=== PATIENT | female | born 1975 | race Caucasian/White ===

== ENCOUNTER 2016-04-12 19:10 | Emergency (ER) | payer OTHER ==
[2016-04-12] MEDS ORDERED: NS 0.9% 1000 ML* 2,000 ML IV ONE (20:00)
[2016-04-12] MEDS ORDERED: Metoclopramide IV* 5 MG/ML 2 ML VIAL IV SLOW PU ONE (20:01)
--- NOTE | 2016-04-12 20:40 | ED ---
Abdominal Pain/Female - HPI Summary HPI Summary: Patient is 7 weeks and presents with nausea and vomiting x2 days. She states she was diagnosed with hyperemesis with her previous and eventually needed fluid replacement and nausea medications. She states this is similar. Denies GAO, abdominal pain, dizziness, vaginal discharge or bleeding or urinary symptoms. She called her OB today, but since the OB has yet to see her for this , OB was unable to prescribe any anti-nausea medications. Today she asks for fluid repletion and anti-nausea medications. Otherwise healthy and takes no medications. Previous pregnancies without compromise other than hyperemesis symptoms. - History of Current Complaint Chief Complaint: EDGennyuseCesar Stated Complaint: VOMITING-7WKS PREG Time Seen by Provider: 04/12/16 19:44 Hx Obtained From: Patient Hx Last Menstrual Period: 10/11/14 ?: Yes Onset/Duration: Gradual Onset Timing: Minutes Severity Initially: Moderate Severity Currently: Moderate Pain Intensity: 1 Pain Scale Used: 0-10 Numeric Radiates: No Aggravating Factor(s): Food Alleviating Factor(s): Medications Associated Signs and Symptoms: Positive: Nausea, Vomiting Simlar Episode/Dx as:: previous hyperemesis gravidarum with - Risk Factors Ectopic Risk Factor: Maternal Age ^ 30 Ovarian Torsion Risk Factor: Reproductive Age Allergies/Adverse Reactions: Allergies Allergy/AdvReac Type Severity Reaction Status Date / Time No Known Allergies Allergy Verified 10/22/14 10:14 PMH/Surg Hx/FS Hx/Imm Hx Previously Healthy: Yes Infectious Disease History: No Infectious Disease History: Denies: History Other Infectious Disease, Traveled Outside the [place] in Last 30 Days - Social History Occupation: Employed Full-time Lives: With Family Alcohol Use: Occasionally Hx Substance Use: No Substance Use Type: Reports: None Hx Tobacco Use: No Smoking Status (MU): Never Smoked Tobacco Do You Chew or Dip Tobacco: No Have You Chewed or Dipped Tobacco in the LAST YEAR: No Have You Smoked in the Last Year: No Review of Systems Constitutional: Negative Cardiovascular: Negative Respiratory: Negative Positive: Vomiting, Nausea Genitourinary: Negative Positive: no symptoms reported, see HPI, other - denies vaginal discharge Musculoskeletal: Negative Skin: Negative Neurological: Negative Psychological: Normal All Other Systems Reviewed And Are Negative: Yes Physical Exam Triage Information Reviewed: Yes Vital Signs On Initial Exam: Initial Vitals Temp Pulse Resp BP Pulse Ox 98.3 F 87 16 101/67 100 04/12/16 19:37 04/12/16 19:37 04/12/16 19:37 04/12/16 19:37 04/12/16 19:37 Vital Signs Reviewed: Yes Appearance: Positive: Well-Appearing, No Pain Distress, Well-Nourished Skin: Positive: Warm, Skin Color Reflects Adequate Perfusion Head/Face: Positive: Normal Head/Face Inspection, Temporal Artery Tenderness Eyes: Positive: Normal, EOMI, KIMMY Neck: Positive: Supple, Nontender Respiratory/Lung Sounds: Positive: Breath Sounds Present Cardiovascular: Positive: Normal, Pulses are Symmetrical in both Upper and Lower Extremities Abdomen Description: Positive: Soft Musculoskeletal: Positive: Normal, Strength/ROM Intact Neurological: Positive: Sensory/Motor Intact, Alert, Oriented to Person Place, Time, CN Intact II-III, Speech Normal Psychiatric: Positive: Normal, Affect/Mood Appropriate AVPU Assessment: Verbal (Reponds To) - Adams Coma Scale Best Eye Response: 4 - Spontaneous Best Motor Response: 6 - Obeys Commands Best Verbal Response: 5 - Oriented Diagnostics - Vital Signs Vital Signs Temp Pulse Resp BP Pulse Ox 04/12/16 19:37 98.3 F 87 16 101/67 100 - Laboratory Result Diagrams: 04/12/16 21:05 04/12/16 21:45 Lab Statement: Any lab studies that have been ordered have been reviewed, and results considered in the medical decision making process. Abdominal Pain Fem Course/Dx - Course Course Of Treatment: Patient arrives with N/V with 7 weeks . No current OB for this but has appt soon. She has had 2 previous pregnancies with hyperemesis gravidarum with both. Today, she states this feels similar to her other pregnancies. She called her OB, but they were unable to prescribe medications without evaluating her first. Discharged with zofran rx and dispense to home zofran. Will follow up with PCP. - Diagnoses Differential Diagnosis: Positive: Ectopic , , Other - N/V, hyperemesis gravidarum Provider Diagnoses: Hyperemesis gravidarum Discharge - Discharge Plan Condition: Stable Disposition: HOME Patient Education Materials: Hyperemesis Gravidarum (ED) Referrals: Non Staff,Doctor [Primary Care Provider] - Additional Instructions: Follow up with OBGYN. If you develop any urinary symptoms, come back to ED or see your PCP or OBGYN. Take zofran as prescribed to you. Do not drive or operate machinery until you know how this medication affects you. Drink plenty of fluids. Supplement with cranberry juice. Eat slow small meals throughout the day and begin each day with crackers before rising. This may help with nausea in the AM.
[2016-04-12 21:13] LABS: Hematocrit 36 % (35-47); Hemoglobin 11.8 g/dl (12.0-16.0); Mean Corpuscular HGB Conc 33 g/dl (31-36); Mean Corpuscular Hemoglobin 27 pg (27-31); Mean Corpuscular Volume 81 fL (80-97); Red Blood Count 4.45 10^6/ul (4.0-5.4); Red Cell Distribution Width 17 % (10.5-15)
[2016-04-12 21:14] LABS: Add Diff/Slide Review? Slide Review Added; Comments Flag Yes
[2016-04-12 21:30] LABS: Budding Yeast Present (Absent); Urine Bacteria Absent (Absent); Urine Bilirubin Negative (Negative); Urine Glucose Negative (Negative); Urine Nitrite Negative (Negative)
[2016-04-12 21:30] LABS: ALT 13 U/L (7-52); Albumin 4.2 g/dL (3.2-5.2); Alkaline Phosphatase 48 U/L (34-104); BUN/Creatinine Ratio 16.2 (8-20); Blood Urea Nitrogen 11 mg/dL (6-24); CO2 Carbon Dioxide 23 mmol/L (22-32); Calcium 9.7 mg/dL (8.6-10.3); Chloride 101 mmol/L (101-111); EGFR African American 124.5 (>60); EGFR Non-African American 96.8 (>60); Globulin 3.4 g/dL (2-4); Glucose 91 mg/dL (70-100); Sodium 130 mmol/L (133-145); Total Protein 7.6 g/dL (6.4-8.9)
[2016-04-12 21:41] LABS: Mean Platelet Volume 9 um3 (7.4-10.4)
[2016-04-12] MEDS ORDERED: Ondansetron ODT TAB* 4 MG PO ONE (22:00)
[2016-04-12 22:32] VITALS: BP 103/61
== END 2016-04-12 22:30 | disposition home or self-care (01) ==
LOC: ED 19:10
DX: O21.0 Mild hyperemesis gravidarum (principal); Z3A.01 Less than 8 weeks gestation of pregnancy
CPT/HCPCS: 36415; 80053; 81003; 81015; 85025; 87086; 96360; 96374; 99283; A9270-GY; J2765

== ENCOUNTER 2016-07-06 08:07 | Emergency (ER) | payer OTHER ==
[2016-07-06 09:05] LABS: PCO2 Arterial 17 mmHg (35-45)
[2016-07-06 09:07] LABS: Hematocrit 34 % (35-47); Hemoglobin 11.1 g/dl (12.0-16.0); Mean Corpuscular HGB Conc 33 g/dl (31-36); Mean Corpuscular Hemoglobin 29 pg (27-31); Mean Corpuscular Volume 86 fL (80-97); Mean Platelet Volume 8 um3 (7.4-10.4); Red Cell Distribution Width 16 % (10.5-15); White Blood Count 11.8 10^3/ul (3.5-10.8)
[2016-07-06] MEDS ORDERED: NS 0.9% 1000 ML* 1,000 ML IV ONE (09:15)
[2016-07-06 09:28] LABS: Albumin 3.7 g/dL (3.2-5.2); BUN/Creatinine Ratio 9.6 (8-20); Calcium 9.3 mg/dL (8.6-10.3); EGFR African American 169.7 (>60); Globulin 3.4 g/dL (2-4); Potassium 3.2 mmol/L (3.5-5.0); Total Bilirubin 0.5 mg/dL (0.2-1.0); Total Protein 7.1 g/dL (6.4-8.9)
--- NOTE | 2016-07-06 11:29 | RAD ---
HISTORY: , shortness of breath, tachycardia, COMPARISONS: None relevant TECHNIQUE: Multiple transverse and longitudinal ultrasound images were obtained of the bilateral lower extremities from the level of the common femoral vein inferiorly through to the infrapopliteal veins using grayscale, color Doppler, and spectral Doppler imaging with and without compression and with augmentation. FINDINGS: VEINS: There is venous stasis without thrombosis. The venous system of the bilateral lower extremities is compressible throughout its course, with normal flow on color Doppler imaging and normal response to augmentation on spectral Doppler imaging. SOFT TISSUES: Unremarkable. OTHER FINDINGS: None. IMPRESSION: BILATERAL VENOUS STASIS WITHOUT THROMBOSIS
[2016-07-06] MEDS ORDERED: Iohexol 350* (CONTRAST) 500 ML MDV IV ONE (14:13)
--- NOTE | 2016-07-06 14:43 | RAD ---
INDICATION: 19 weeks . Dyspnea and tachycardia. Palpitations. Bilateral lower extremity venous ultrasound remarkable for venous stasis without visualized thrombosis. COMPARISON: Bilateral lower extremity venous ultrasound of the same date. November 30, 2014 chest radiograph. TECHNIQUE: Multidetector CT images were obtained from the lung apices to the upper abdomen with 61 mL Omnipaque 350 IV contrast. Pulmonary angiogram protocol. Multiplanar reformation including with maximum intensity projection. REPORT: Minimal bilateral dependent subsegmental atelectasis. Negative for pleural effusion or pneumothorax. Negative for thoracic lymphadenopathy. Upper normal heart size. Negative for pericardial effusion. Normal diameter thoracic aorta. No evidence for dissection of the thoracic aorta. No filling defects are identified from the main to the subsegmental pulmonary arteries to indicate presence of a pulmonary embolism. Unremarkable Limited images through the upper abdomen. Negative for suspicious thoracic osseous lesions. IMPRESSION: No evidence for pulmonary embolism or other acute intrathoracic process.
--- NOTE | 2016-07-06 15:08 | CONS ---
CONSULTATION REPORT: DATE OF CONSULT: 07/06/16 The patient was seen around 9:30 to 10 a.m. HISTORY OF PRESENT ILLNESS: Mrs. Mendoza is a 40-year-old with an intrauterine at 19+ weeks estimated gestational age, whose care has been uncomplicated to this date. She presented to the emergency room this morning with complaints of 1 week of heart palpitations. She felt her heart racing and she has become short of breath over the last 12 hours. She also admitted to me having left lower leg pain around the knee and posteriorly on the thigh yesterday. The patient's care has been with [facility]. PAST MEDICAL HISTORY: 1. Asthma. 2. Migraine headaches. PAST SURGICAL HISTORY: None. OBSTETRICAL HISTORY: She has had 2 full-term spontaneous vaginal deliveries, one of which was complicated with preeclampsia. GYNECOLOGICAL HISTORY: Unremarkable. FAMILY HISTORY: Father is alive and well. Mother has diabetes. Brother has heart disease. Her two sons have atrial septal defects. Her maternal grandmother has a history of cardiovascular disease and diabetes. SOCIAL HISTORY: Denies cigarette, alcohol, drug use. PHYSICAL EXAM: The patient, when I saw her in the emergency room, she was in bed, in no apparent distress. heart sounds were obtained and they were noted to be in the 150 beats per minute. Vital Signs: At 8 a.m., her blood pressure was 115/66, respiratory rate of 20, pulse of 97, temperature of 97.3. Her abdomen was soft, nontender, gravid. DIAGNOSTIC STUDIES/LAB DATA: She had had an EKG, which showed normal sinus rhythm. She also had blood gas whose pH was 7.6, pCO2 was 17, pO2 of 133 with an O2 sat of 99.6 and a base excess of -2.8. Please note that in , a respiratory alkalemia can be commonplace and an ABG per se does not rule out or rule in a pulmonary embolism. IMPRESSION: My impression is that of an intrauterine at 19 weeks with complaints of 1-week onset of palpitations, shortness of breath, with left lower extremity pain. She is afebrile. The patient's clinical signs and symptoms are suspicious for possible DVT/pulmonary embolism. PLAN/RECOMMENDATIONS: My recommendation is to start her workup with a venous Doppler and if this is positive, then she can be anticoagulated and we avoid any radiation from imaging procedures. If her Doppler studies are negative, then I would suggest that she had a CT to rule out a pulmonary embolism. I did discuss thge effects of radiation and imaging contrast to sarahi (fetus) with the patient and her spouse, and informed them that the risk of morbidity and mortality from an unknown. untreated pulmonary emboli far outweighs the risk of the radiation from the CT scan. They were agreeable with my recommendations. Please feel free to reconsult me if there are any other obstetrical issues. [id number]/[facility] #: [id number] [facility]ARE SYSTEMMike
--- NOTE | 2016-07-06 15:23 | ED ---
Abhijit Miramontes Auryana, scribed for Pj Davenport MD on 07/06/16 at 0834 . Palpitations / Dysrhythmia - HPI Summary HPI Summary: 40 year old female presents with palpitations starting 1 week ago worse since last night - reports that she felt like it was something "punching her from the inside". She also has SOB and lightheadedness. When laying down, she reports that her pulse is between <80 BPM, but still has palpitations. Symptoms are aggravated when standing or walking - reports pulse is 140 BPM standing with palpitations. She reports a similar episode with her first born - resolved after . LMP february 22 - currently 19 weeks A0. PMHx is asthma and wisdom teeth removal - denies any C-sections. FHx is significant for HTN, HLD, CAD/VT, and cancer. No tobacco or alcohol use. Her CIGAR PATCHER is at [facility]. - History of Current Complaint Chief Complaint: EDDysrhythmPalp Time Seen by Provider: 07/06/16 08:20 Hx Obtained From: Patient Onset/Duration: Gradual Onset, Lasting Weeks - 1, Still Present, Worse Since - last night Timing: Constant Severity Initially: Moderate Severity Currently: Moderate Character: Pounding, Fluttering - "punching" Aggravating: Position - standing Alleviating: Nothing Associated Signs & Symptoms: Lightheadedness, Shortness of Breath Related History: Similar Episode/Dx as - yes with first but not with her 2nd - Allergy/Home Medications Allergies/Adverse Reactions: Allergies Allergy/AdvReac Type Severity Reaction Status Date / Time No Known Allergies Allergy Verified 10/22/14 10:14 PMH/Surg Hx/FS Hx/Imm Hx Cardiovascular History: Reports: Other Cardiovascular Problems/Disorders - palpitations with 1st Respiratory History: Reports: Hx Asthma - Surgical History Surgery Procedure, Year, and Place: wisdom teeth removal Infectious Disease History: No Infectious Disease History: Denies: History Other Infectious Disease, Traveled Outside the [place] in Last 30 Days - Family History Known Family History: Positive: Cardiac Disease, Hypertension, Diabetes, Other - cancer, [place] - Social History Occupation: Employed Full-time Lives: With Family Alcohol Use: Occasionally Hx Substance Use: No Substance Use Type: Reports: None Hx Tobacco Use: No Smoking Status (MU): Never Smoked Tobacco Have You Smoked in the Last Year: No Review of Systems Positive: Other - lightheadedness Eyes: Negative ENT: Negative Positive: Palpitations Positive: Shortness Of Breath Gastrointestinal: Negative Genitourinary: Negative Musculoskeletal: Negative Skin: Negative Neurological: Negative Psychological: Normal All Other Systems Reviewed And Are Negative: Yes Physical Exam - Summary Physical Exam Summary: VITAL SIGNS: Reviewed. GENERAL: Patient is a well-developed and nourished female who is lying comfortable in the stretcher. Patient seems to be short of breath. HEAD AND FACE: No signs of trauma. No ecchymosis, hematomas or skull depressions. No sinus tenderness. EYES: PERRLA, EOMI x 2, No injected conjunctiva, no nystagmus. EARS: Hearing grossly intact. Ear canals and tympanic membranes are within normal limits. MOUTH: Oropharynx within normal limits. NECK: Supple, trachea is midline, no adenopathy, no JVD, no carotid bruit, no c- spine tenderness, neck with full ROM. CHEST: Symmetric, no tenderness at palpation LUNGS: Clear to auscultation bilaterally. No wheezing or crackles. CVS: Regular rate and rhythm, S1 and S2 present, no murmurs or gallops appreciated. ABDOMEN: Soft, non-tender. Abdominal distention above umbillicus secondary to . No rebound no guarding, and no masses palpated. Bowel sounds are normal. EXTREMITIES: FROM in all major joints, no edema, no cyanosis or clubbing. NEURO: Alert and oriented x 3. No acute neurological deficits. Speech is normal and follows commands. SKIN: Dry and warm Triage Information Reviewed: Yes Vital Signs On Initial Exam: Initial Vitals Temp Pulse Resp BP Pulse Ox 97.3 F 85 20 115/56 100 07/06/16 08:09 07/06/16 08:09 07/06/16 08:09 07/06/16 08:09 07/06/16 08:09 Vital Signs Reviewed: Yes Diagnostics - Vital Signs Vital Signs Temp Pulse Resp BP Pulse Ox 07/06/16 08:13 97.3 F 97 20 115/56 100 07/06/16 08:09 97.3 F 85 20 115/56 100 - Laboratory Lab Results: Lab Results 07/06/16 07/06/16 07/06/16 Range/Units 08:50 08:58 08:58 WBC 11.8 H (3.5-10.8) 10^3/ul RBC 3.90 L (4.0-5.4) 10^6/ul Hgb 11.1 L (12.0-16.0) g/dl Hct 34 L (35-47) % MCV 86 (80-97) fL MCH 29 (27-31) pg MCHC 33 (31-36) g/dl RDW 16 H (10.5-15) % Plt Count 285 (150-450) 10^3/ul MPV 8 (7.4-10.4) um3 Neut % (Auto) 70.7 (38-83) % Lymph % (Auto) 19.4 L (25-47) % [place] % (Auto) 7.3 (1-9) % Eos % (Auto) 2.2 (0-6) % Baso % (Auto) 0.4 (0-2) % Absolute Neuts (auto) 8.3 H (1.5-7.7) 10^3/ul Absolute Lymphs (auto) 2.3 (1.0-4.8) 10^3/ul Absolute Monos (auto) 0.9 H (0-0.8) 10^3/ul Absolute Eos (auto) 0.3 (0-0.6) 10^3/ul Absolute Basos (auto) 0 (0-0.2) 10^3/ul Absolute Nucleated RBC 0.01 10^3/ul Nucleated RBC % 0.1 ABG pH 7.60 H (7.35-7.45) ABG pCO2 17 L* (35-45) mmHg ABG pO2 133 H (80-100) mmHg ABG HCO3 22.7 (19-31) mmol/L ABG O2 Saturation 99.6 H (95-98) % ABG Base Excess -2.8 L (-2.0-2.0) Sodium 133 (133-145) mmol/L Potassium 3.2 L (3.5-5.0) mmol/L Chloride 104 (101-111) mmol/L Carbon Dioxide 20 L (22-32) mmol/L Anion Gap 9 (2-11) mmol/L BUN 5 L (6-24) mg/dL Creatinine 0.52 (0.51-0.95) mg/dL Est GFR ( Amer) 169.7 (>60) Est GFR (Non-Af Amer) 132.0 (>60) BUN/Creatinine Ratio 9.6 (8-20) Glucose 92 (70-100) mg/dL Calcium 9.3 (8.6-10.3) mg/dL Total Bilirubin 0.50 (0.2-1.0) mg/dL AST 13 (13-39) U/L ALT 8 (7-52) U/L Alkaline Phosphatase 64 (34-104) U/L Troponin I 0.00 (<0.04) ng/mL B-Natriuretic Peptide ( - 100) pg/mL Total Protein 7.1 (6.4-8.9) g/dL Albumin 3.7 (3.2-5.2) g/dL Globulin 3.4 (2-4) g/dL Albumin/Globulin Ratio 1.1 (1-3) // Range/Units 08:58 WBC (3.5-10.8) 10^3/ul RBC (4.0-5.4) 10^6/ul Hgb (12.0-16.0) g/dl Hct (35-47) % MCV (80-97) fL MCH (27-31) pg MCHC (31-36) g/dl RDW (10.5-15) % Plt Count (150-450) 10^3/ul MPV (7.4-10.4) um3 Neut % (Auto) (38-83) % Lymph % (Auto) (25-47) % [place] % (Auto) (1-9) % Eos % (Auto) (0-6) % Baso % (Auto) (0-2) % Absolute Neuts (auto) (1.5-7.7) 10^3/ul Absolute Lymphs (auto) (1.0-4.8) 10^3/ul Absolute Monos (auto) (0-0.8) 10^3/ul Absolute Eos (auto) (0-0.6) 10^3/ul Absolute Basos (auto) (0-0.2) 10^3/ul Absolute Nucleated RBC 10^3/ul Nucleated RBC % ABG pH (7.35-7.45) ABG pCO2 (35-45) mmHg ABG pO2 (80-100) mmHg ABG HCO3 (19-31) mmol/L ABG O2 Saturation (95-98) % ABG Base Excess (-2.0-2.0) Sodium (133-145) mmol/L Potassium (3.5-5.0) mmol/L Chloride (101-111) mmol/L Carbon Dioxide (22-32) mmol/L Anion Gap (2-11) mmol/L BUN (6-24) mg/dL Creatinine (0.51-0.95) mg/dL Est GFR ( Amer) (>60) Est GFR (Non-Af Amer) (>60) BUN/Creatinine Ratio (8-20) Glucose (70-100) mg/dL Calcium (8.6-10.3) mg/dL Total Bilirubin (0.2-1.0) mg/dL AST (13-39) U/L ALT (7-52) U/L Alkaline Phosphatase (34-104) U/L Troponin I (<0.04) ng/mL B-Natriuretic Peptide 27 ( - 100) pg/mL Total Protein (6.4-8.9) g/dL Albumin (3.2-5.2) g/dL Globulin (2-4) g/dL Albumin/Globulin Ratio (1-3) Result Diagrams: 07/06/16 08:58 07/06/16 08:58 Lab Statement: Any lab studies that have been ordered have been reviewed, and results considered in the medical decision making process. - CT CTA CHEST CT Interpretation: No Acute Changes - IMPRESSION: No evidence for pulmonary embolism or other acute intrathoracic process. CT Interpretation Completed By: Radiologist - EKG 08:48 EKG Interpretation: NSR @ 70 BPM, NO ST ELEVATION - Additional Comments Diagnostic Additional Comments: VL LOWER EXT VEINS BILATERAL IMPRESSION: BILATERAL VENOUS STASIS WITHOUT THROMBOSIS Re-Evaluation - Re-Evaluation First Eval Re-Evaluation Time: 09:55 - discussed radiologist recommendations Second Eval Re-Evaluation Time: 14:59 Course/Dx - Course Assessment/Plan: 40 year old female presents with palpitations starting 1 week ago worse since last night - reports that she felt like it was something "punching her from the inside". She also has SOB and lightheadedness. When laying down, she reports that her pulse is between <80 BPM, but still has palpitations. Symptoms are aggravated when standing or walking - reports pulse is 140 BPM standing with palpitations. She reports a similar episode with her first born - resolved after . LMP february 22 - currently 19 weeks A0. PMHx is asthma and wisdom teeth removal - denies any C- sections. FHx is significant for HTN, HLD, CAD/VT, and cancer. No tobacco or alcohol use. Her CIGAR PATCHER is at [facility]. Blood work shows increase WBC of 11.8, slight anemia, hypokalemia, for which she was given potassium chloride. ABG shows a PH of 7. 6, PCO2 17, PO2 133, O2sat 99.6. I ambulated the patient approximately 8 feet and she became very short of breath and tachycardic. I discussed the case with Dr. Zaragoza who came and assess the patient and recommended a b/l LE US. They were negative for DVT. Patient continues to have SOB and tachycardia on slight exertion. Patient is not having any cough or fever therefore it makes less likely to have pneumonia. Therefore I discussed the case with Dr. Pj Patiño and he recommends a chest CT vs VQ scan. Dr. Pierce agrees. Dr. Pierce and I discussed the benefits and risk of CTA since she is and the patient and her agrees to have the CTA. They understand the morbidity and mortality of untreated pulmonary embolism. CTA is negative for PE. Therefore I discussed the findings with Dr. Zaragoza and he recommends to discharge patient home with F/U at his office. She is also schedule to see cardiology on . I discussed all the findings and test results with the patient. Patient was instructed to return to the emergency room immediately if any of the symptoms return or worsens. Plan of care was discussed with the patient and understands and agrees. All questions were answered at patient satisfaction. There were no further complaints or concerns. Lung exam before discharge: CTA B/L. Good air exchange. No wheezing or crackles heard. CVS: S1 and S2 present. No murmurs appreciated. Patient is alert and oriented x 3. Patient is hemodynamically stable. Patient will be discharged home with follow up PCP in the next 2-3 days - Diagnoses Differential Diagnosis/HQI/PQRI: Positive: Pericarditis Provider Diagnoses: Dyspnea, Palpitations - Physician Notifications Discussed Care Of Patient With: Dr. Zaragoza (CIGAR PATCHER) - discussed patient and current complaints Time Discussed With Above Provider: 09:43 - request to speak with radiology about chest CT or VQ scan. Spoke with radiology - Dr. Gilmore (09:54) - and he recommends a CHEST CT. Discharge - Discharge Plan Condition: Stable Disposition: HOME Patient Education Materials: Dyspnea (ED), Palpitations (ED) Referrals: Butch Zaragoza MD [Medical Doctor] - 2 Days The documentation as recorded by the Abhijit cervantes Auryana accurately reflects the service I personally performed and the decisions made by , Pj Davenport MD.
[2016-07-06 15:37] VITALS: BP 110/65
== END 2016-07-06 15:48 | disposition home or self-care (01) ==
LOC: ED 08:07
DX: R06.00 Dyspnea, unspecified (principal); R00.2 Palpitations; R42 Dizziness and giddiness; R06.02 Shortness of breath
CPT/HCPCS: 36415; 36600; 71275; 80053; 82803; 83880; 84484; 85025; 93005; 93970; 99283; Q9967